=== PATIENT | female | born 1965 | race Hispanic/Latino ===

== ENCOUNTER 2024-07-24 15:24 | Emergency (ER) | payer OTHER ==
[~2024-07-24] VITALS: Ht 160 cm; Wt 78.0 kg
[2024-07-24 15:58] VITALS: BP_DIAS 75
--- NOTE | 2024-07-24 16:16 | ERN ---
General Chief Complaint: Other Problems Stated Complaint: RIGHT SIDE HEAD CONTUSION,SENT BY DOCTOR Time Seen by MD: 15:27 History of Present Illness Initial Comments 59-year-old female otherwise healthy presents with right head injury. Patient accidentally struck her right head for five days ago. No loss of consciousness. She reports that since she has been dizzy hearing cracking in her ears. She went to her PCP who sent her here for a CT scan of the brain. Allergies: Coded Allergies: No Known Allergies (Unverified Allergy, Unknown, 07/24/24) Past Medical History Past Medical History: No Pertinent History Past Surgical History: Hysterectomy ROS Dictation CONSTITUTIONAL: No chills, no fever, no weakness, no diaphoresis, no malaise. HEAD/FACE: No signs of trauma. EENT: No eye pain, no blurred vision, no tearing, no double vision, no ear pain, no ear discharge, no nose pain, no nasal congestion, no throat pain, no throat swelling, no mouth pain. RESPIRATORY: No cough, no orthopnea, no SOB, no stridor, no wheezing. CARDIOVASCULAR: No chest pain, no edema, no palpitations, no syncope. GASTROINTESTINAL/ABDOMINAL: No abdominal pain, no constipation, no diarrhea, no nausea, no vomiting. GENITOURINARY: No abnormal discharge, no dysuria, no frequent urination, no hematuria. No complaints of pain in the genitals. MUSCULOSKELETAL: No back pain, no gout, no joint pain, no joint swelling, no muscle pain, no muscle stiffness, no neck pain. INTEGUMENTARY: No change in color, no change in hair/nails, no dryness, no lesion, no lumps, no rash. NEUROLOGICAL/PSYCH: No anxiety, not depressed, no emotional problem, no headache, no numbness, no pre-existing deficit, no history of seizures, no tremors, no weakness. HEMATOLOGIC/LYMPHATIC: Not anemic, no history of blood clots, no apparent bleeding, no bruising, glands not swollen. All Systems Negative, Except as Noted. Physical Exam Physical Exam Dictation VITAL SIGNS: Reviewed. GENERAL APPEARANCE: Alert, oriented x3, no acute distress, obese. HEAD AND FACE: Non-traumatic. EYES: PERRL, pink conjunctivas, eyelid no trauma, anterior chamber clear. EARS: Pinnas intact and no signs of trauma or erythema. Ear canals clear and no discharge. TMs no erythema. NOSE: No discharge, no bleeding. OROPHARYNX: Mouth normal, teeth no caries, tongue pink. Pharynx clear, no erythema. Tonsils no exudates, no abscesses noted. Mucous membrane moist. NECK: Supple, non-tender, no thyromegaly, no masses, no JVD, no bruits. BREAST: Deferred. CHEST: No tenderness, no crepitus, no paradoxical movement, no retractions. LUNGS: Clear, well-ventilated, symmetric, no rales, no wheezing, no rhonchi, no stridor, good breath sounds bilaterally. HEART: Regular rate, regular rhythm, no murmur, no gallops. VASCULAR: No peripheral edema. ABDOMEN: Soft, positive bowel sounds, nondistended, no guarding, nontender, no rebound, no masses no hepatomegaly, no splenomegaly, no Huffman's sign, no hernias. RECTAL: Deferred. GENITAL: Deferred. NEUROLOGICAL: Normal speech, gross motor function intact, gross sensory function intact. MUSCULOSKELETAL: Neck nontender, full range of motion, back nontender, full range of motion. EXTREMITIES: Nontender, full range of motion. SKIN: Color pink, dry, no turgor, no rash, no lacerations, no abrasions, no contusions. LYMPHATICS: Deferred. CHEPE CC: Head injury Historian: Patient Comorbidities: None Limitations by social determinants of health: None Vital signs are stable Patient was sent here for CT scan. CT head is unremarkable. We will DC. Patient agrees ED Course Orders Procedure Category Date Status Time Ct Head/Brain W/O CT 07/24/24 Resulted Contrast 16:04 Vital Signs Date Time Temp Pulse Resp B/P (MAP) Pulse Ox O2 Delivery O2 Flow Rate FiO2 07/24/24 16:59 98.1 90 16 133/ 100 Room Air* 0 21 07/24/24 15:58 97.3 64 20 115/75 99 DX & DISP Disposition: Discharge Departure Impression: Primary Impression: Head injury Condition: Stable Additional Instructions: Your CT scan does not show any injuries. As we discussed, you may have had a concussion or you have an ear injury after the trauma. Please continue to follow up with your primary doctor. You can take [id number] Tylenol (1000 mg) or ibuprofen (600 mg) as needed for pain. Please refer to the emergency department if you have any concerns. Referrals: ISREAL SELLERS (PCP) SANJAY MORRIS DO Jul 24, 2024 16:16
--- NOTE | 2024-07-24 16:36 | HMCIMG ---
CT HEAD/BRAIN W/O CONTRAST HISTORY: Trauma COMPARISON: None TECHNIQUE: Multiple sequential axial images of the head were obtained from the base of the skull through vertex. Patient was not given contrast through intravenous route. FINDINGS: The ventricles and extraventricular CSF spaces are nondilated for patient's age. There is no midline shift, mass effect or herniation. No acute intracranial bleed is seen. Visualized portion of the paranasal sinuses are grossly within normal limits. IMPRESSION: 1. No acute intracranial bleed is seen. CT was performed with one or more following dose reduction techniques: automated exposure control, adjustment of the mA and kv according to patient's size, or use of a iterative reconstruction technique.
[2024-07-24 16:59] VITALS: BP_SYST 133; PULSE 90; RESP 16; TEMP 98; O2SAT 100
== END 2024-07-24 17:00 | disposition home or self-care (01) ==
LOC: EDH 15:24
DX: S09.8XXA Other specified injuries of head, initial encounter (principal); Z90.710 Acquired absence of both cervix and uterus; W22.8XXA Striking against or struck by other objects, initial encounter; Y93.89 Activity, other specified; Y92.89 Other specified places as the place of occurrence of the external cause; Y99.8 Other external cause status
CPT/HCPCS: 70450